=== PATIENT | male | born 1990 | race Caucasian/White ===

== ENCOUNTER 2023-11-10 19:50 | Emergency (ER) | payer BC, SELFPAY ==
[2023-11-10] VITALS (7 sets, daily range): BP systolic 111–119; BP diastolic 59–66; PULSE 73–87; RESP 16–28; TEMP 36.9–37.2; O2SAT 95–98
--- NOTE | ~2023-11-10 | XR_ITS ---
XR chest 2V Ordering provider: April Madrigal MD History: 33 years Male with . Cystoadenoma chest pain . Comparison: None. FINDINGS: MEDIASTINUM: The cardiac silhouette is not enlarged. LUNGS: No effusions or pneumothorax. Opacification is seen in the lingula and the right lower lobe calderón ggestive of pneumonia. OTHER: No free air under the diaphragm. IMPRESSION: Opacification in the lingula and right lower lobe suggestive of pneumonia. Follow-up and clinical co rrelation advised. Reviewed, dictated and finalized at location A. IMPRESSION: Opacification in the lingula and right lower lobe suggestive of pneumonia. Fol low-up and clinical correlation advised.
--- NOTE | 2023-11-10 19:52 | ECG_ITS ---
Test Date: 2023-11-10 19:55:11 Measurements Intervals Barry Rate: 86 P: 60 SC: 149 QRS: 63 QRSD: 124 T: 56 QT: 344 QTc: 413 Interpretive Statements SINUS RHYTHM RIGHT BUNDLE BRANCH BLOCK MINIMAL Q WAVES- ANTEROLAT/INF LEADS BASELINE ARTIFACT- I, III, AVR, AVL ABNORMAL ECG No previous ECG available for comparison Electronically Signed On 11-10-2023 20:01:23 CDT by Pedro Brian D.O.
[2023-11-10] MEDS: ASPIRIN 81 MG CHEWABLE TABLET 324 MG PO (20:16)
[2023-11-10 20:26] LABS: Basophils Absolute Auto 0.1 K/mm3 (0.0-0.1); Basophils Percent Auto 0.5 % (0.2-1.2); Eosinophils Absolute Auto 0.2 K/mm3 (0-0.3); Eosinophils Percent Auto 1.2 % (0-4.4); Hematocrit 40.3 % (42.0-52.0); Hemoglobin 14.2 g/dL (14.0-18.0); Immature Granulocyte Absolute 0.03 K/mm3 (0.00-0.031); Immature Granulocyte Percent A 0.2 % (0-0.5); Lymphocytes Absolute Auto 2.78 K/mm3 (0.9-3.2); Lymphocytes Percent Auto 20.1 % (18.3-44.2); Mean Corpuscular HGB Conc 35.2 g/dl (32-36); Mean Corpuscular Hemoglobin 32.8 pg (26-34); Mean Corpuscular Volume 93.1 fl (80-100); Mean Platelet Volume 9.8 fl (7.4-10.4); Monocytes Absolute Auto 1.1 K/mm3 (0.1-0.6); Monocytes Percent Auto 8.1 % (2.6-8.5); Neutrophils Absolute Auto 9.7 K/mm3 (1.3-6.7); Neutrophils Percent Auto 69.9 % (45.5-73.1); Platelet Count Result 239 k/mm3 (150-375); Red Blood Count 4.33 M/mm3 (4.6-6.20); Red Cell Distribution Width 10.8 % (11.5-14.5); White Blood Count 13.9 K/mm3 (4.5-10.0)
[2023-11-10 20:36] LABS: Alanine Aminotransferase 16 U/L (6-50); Albumin Level 4.3 g/dL (3.5-5.1); Alkaline Phosphatase 73 U/L (38-126); Anion Gap 12 mmol/L (4-12); Aspartate Amino Transferase 27 U/L (17-59); Bilirubin,Total 0.6 mg/dL (0.2-1.3); Blood Urea Nitrogen 9 mg/dL (9-20); Calcium 8.8 mg/dL (8.4-10.2); Carbon Dioxide 24 mmol/L (22-30); Chloride 103 mmol/L (98-107); Estimated CRCL calculation 117 ml/min; Estimated Glomerular Filt Rate > 60; Glucose 90 mg/dL (65-110); Lipase 47 U/L (23-300); Potassium 3.6 mmol/L (3.4-5.0); Sodium 139 mmol/L (137-145)
[2023-11-10 20:38] LABS: INR 1.1; Prothrombin Time 15.1 Seconds (11.1-14.7)
[2023-11-10 20:39] LABS: Partial Thromboplastin Time 33.7 Seconds (22.3-36.8)
[2023-11-10 20:47] LABS: Troponin I < 0.012 ng/mL (0.000-0.034)
[2023-11-10 21:02] LABS: Influenza A QL RT-PCR Negative (Negative); Influenza B QL RT-PCR Negative (Negative); RSV RNA, RT-PCR Negative (Negative); SARS-CoV-2 RNA PCR Negative (Negative)
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
== END 2023-11-10 21:53 | disposition home or self-care (01) ==
PROVIDERS: Emergency Medicine; Emergency Provider Emergency Medicine
DX: J18.9 Pneumonia, unspecified organism (principal); R07.89 Other chest pain; Z20.822 Contact with and (suspected) exposure to COVID-19
CPT/HCPCS: 36415; 71046; 80053; 83690; 84484; 85025; 85610; 85730; 87637; 93005; 99284; A9270; J2704